=== PATIENT | male | born 1945 | race Caucasian/White ===

== ENCOUNTER 2021-05-23 11:38 | Emergency (ER) | payer MEDICARE, BC ==
[~2021-05-23] VITALS: Ht 175.3 cm; Wt 156.9 kg
[~2021-05-23 11:38] MED LIST: ALEVE220 M1 PO; BENICAR40 MG PO; CO Q-10400 MG PO; FISH OIL300 MG PO; FOLIC ACID0.8 MG PO; FUROSEMIDE20 MG PO; HYDROCODON-ACE1 EA11 PO; LYRICA100 MG PO; LYRICA200 MG PO; LYRICA75 MG PO; MELOXICAM7.5 MG PO; METOPROLOL TAR100 MG PO; MTP50T PO; OMEGA PO; OMEPRAZOLE20 MG PO; SIMVASTATIN20 MG PO; ULORIC80 MG PO; XARELTO10 MG PO
[2021-05-23] MEDS ORDERED: CASIRIVIMAB/IMDEVIMAB 10 ML in SODIUM CHLORIDE 0.9% 100 ML IV ONE (12:15)
== END 2021-05-23 13:35 | disposition home or self-care (01) ==
LOC: ER 12:16
DX: R05 Cough (principal); U07.1 COVID-19; E78.5 Hyperlipidemia, unspecified; K21.9 Gastro-esophageal reflux disease without esophagitis; G40.909 Epilepsy, unspecified, not intractable, without status epilepticus; G62.9 Polyneuropathy, unspecified
CPT/HCPCS: 99283